=== PATIENT | male | born 1940 | race Caucasian/White ===

== ENCOUNTER 2018-04-10 12:16 | Outpatient (CLI) | payer MEDICARE, BC ==
[~2018-04-10 12:16] MED LIST: ALLO100T PO; ASPI81TA52 PO; CARV-50 PO; CLOP75TA35 PO; LOSA1TAB41 PO; MINO10TA16 PO; MULT-1179 PO; NITR0.4T48 SL; OMEG1CAP PO; ZOC40T PO
[2018-04-10 13:11] LABS: BLOOD UREA NITROGEN 23 MG/DL (7-18); CREATININE 0.96 MG/DL (0.60-1.10); eGFR 76 ML/MIN
[2018-04-10] MEDS ORDERED: iohexol 350MG/ML 100ml bottle IV ONE (16:15)
[2018-04-10] MEDS ORDERED: iohexol 350 MG/ML 50ML vial IV ONE (16:18)
== END 2018-04-10 23:59 | disposition home or self-care (01) ==
LOC: 64 CT 12:16
PROVIDERS: ATTEND Surgery
DX: Z01.818 Encounter for other preprocedural examination (principal); K86.3 Pseudocyst of pancreas; D36.7 Benign neoplasm of other specified sites; I70.213 Atherosclerosis of native arteries of extremities with intermittent claudication, bilateral legs; I10 Essential (primary) hypertension; Z96.651 Presence of right artificial knee joint; Z96.611 Presence of right artificial shoulder joint; Z79.82 Long term (current) use of aspirin; Z85.46 Personal history of malignant neoplasm of prostate
CPT/HCPCS: 36415; 75635; 82565; 84520; J7030; Q9967

== ENCOUNTER 2018-11-26 11:46 | Outpatient (CLI) | payer MEDICARE, BC ==
[~2018-11-26] VITALS: Ht 175.3 cm; Wt 88.5 kg
[2018-11-26 12:51] LABS: TOTAL HEMOGLOBIN 14.2 G/dl (14.0-18.0)
[2018-11-26] MEDS ORDERED: albuterol 2.5 MG/3 ML nebule NEB ONE (13:00)
== END 2018-11-26 23:59 | disposition home or self-care (01) ==
LOC: RT 11:46
PROVIDERS: ATTEND Internal Medicine Cardiovascular Disease
DX: R94.2 Abnormal results of pulmonary function studies (principal); I10 Essential (primary) hypertension; Z79.899 Other long term (current) drug therapy
CPT/HCPCS: 71046; 85018; 94060; 94727; 94729; 94760

== ENCOUNTER 2019-07-28 06:52 | Day surgery (SDC) | payer MEDICARE, BC ==
[2019-07-27 14:18] LABS: BASOPHILS # (AUTO) 0.1 X10'3 (0-0.2); BASOPHILS % (AUTO) 1.3 % (0-1); EOSINOPHILS # (AUTO) 0.2 X10'3 (0-0.9); EOSINOPHILS % (AUTO) 3.2 % (0-6); HEMATOCRIT 33.2 % (42.0-52.0); HEMOGLOBIN 11.1 g/dl (14.0-17.9); LYMPHOCYTES # (AUTO) 0.8 X10'3 (1.1-4.8); LYMPHOCYTES % (AUTO) 12.7 % (21-51); MEAN CORPUSCULAR HEMOGLOBIN 29.6 PG (27.0-31.0); MEAN CORPUSCULAR HGB CONC 33.2 g/dL (33.0-36.5); MEAN CORPUSCULAR VOLUME 89.2 FL (78-98); MONOCYTES # (AUTO) 0.7 X10'3 (0-0.9); MONOCYTES % (AUTO) 12.1 % (2-12); NEUTROPHILS # (AUTO) 4.3 X10'3 (1.8-7.7); NEUTROPHILS % (AUTO) 70.7 % (42-75); PLATELET COUNT 177 X10'3 (140-440); RED BLOOD COUNT 3.73 X10'6 (4.70-6.10); RED CELL DISTRIBUTION WIDTH 16.1 % (11.5-14.5); WHITE BLOOD COUNT 6.1 X10'3 (4.5-11.0)
[2019-07-27 14:27] LABS: ALBUMIN 3.9 G/DL (3.4-5.0); ANION GAP 5 (8-16); BLOOD UREA NITROGEN 28 MG/DL (7-18); BUN/CREATININE RATIO 18.4 (5.4-32.0); CALCIUM 9.7 MG/DL (8.5-10.1); CHLORIDE 103 MMOL/L (99-107); CREATININE 1.52 MG/DL (0.60-1.10); GLUCOSE 84 MG/DL (70-104); SODIUM 145 MMOL/L (135-145); TOTAL CARBON DIOXIDE 36.6 MMOL/L (24-32); eGFR 44 ML/MIN
[~2019-07-28] VITALS: Ht 175.3 cm; Wt 93.9 kg
[2019-07-28] VITALS (16 sets, daily range): BP systolic 90–105; BP diastolic 41–71
[~2019-07-28 06:52] MED LIST changes: +AMIO200T61 PO; +APIX5TAB3 PO; +ATOR20TA66 PO; +CALC500T11 PO; +CHOL50004 PO; +FERR-97 PO; +FURO-149 PO; +OXYB5TAB16 PO; +TRAM50TA2 PO; -ZOC40T PO
[2019-07-28] MEDS ORDERED: MIDAZolam 5mg/ml 2ml vial IV ONE (07:20)
[2019-07-28] MEDS ORDERED: diphenhydrAMINE 25mg capsule PO ONE (07:20)
[2019-07-28] MEDS ORDERED: LORazepam 0.5 MG tablet PO ONE (07:20)
[2019-07-28] MEDS ORDERED: morphine 10mg/ml inj. IV ONE (07:20)
[2019-07-28] MEDS ORDERED: amiodarone in dextrose, iso-osm 150mg/100ml bag IV ONE (07:20)
[2019-07-28] MEDS ORDERED: atropine 0.1mg/ml 10ml syringe IV ONE (07:20)
[2019-07-28] MEDS ORDERED: normal saline 1000ml 1,000 ML IV SCH (07:20)
[2019-07-28] MEDS ORDERED: CARV25TA PO (07:33)
== END 2019-07-28 11:15 | disposition home or self-care (01) ==
LOC: SSTAY O 06:52
PROVIDERS: ATTEND Internal Medicine Cardiovascular Disease
DX: I48.0 Paroxysmal atrial fibrillation (principal); I48.92 Unspecified atrial flutter; I25.10 Atherosclerotic heart disease of native coronary artery without angina pectoris; I10 Essential (primary) hypertension; Z79.82 Long term (current) use of aspirin; Z79.899 Other long term (current) drug therapy; Z79.01 Long term (current) use of anticoagulants; E78.5 Hyperlipidemia, unspecified; E66.3 Overweight; M19.90 Unspecified osteoarthritis, unspecified site; G47.30 Sleep apnea, unspecified; Z96.651 Presence of right artificial knee joint; Z98.890 Other specified postprocedural states; Z98.42 Cataract extraction status, left eye; Z95.5 Presence of coronary angioplasty implant and graft; Z72.89 Other problems related to lifestyle
CPT/HCPCS: 36415; 80048; 85025; 85610; 92960; 93005; J0282; J0461; J2250; J2270; J7030